=== PATIENT | male | born 1975 | race African-American/Black ===

== ENCOUNTER 2017-06-19 17:45 | Observation (INO) | payer MEDICAID ==
[2017-06-19] MEDS ORDERED: Aspirin 81 MG Tab.Chew PO ONE (18:05)
[2017-06-19] MEDS ORDERED: Nitroglycerin 0.4 MG Tab.SL SL ONE ×2 (18:05→18:22)
[2017-06-19] MEDS ORDERED: Aspirin 81 MG Tab.Chew ONE (18:08)
--- NOTE | 2017-06-19 18:20 | EDM.PDOC ---
ED HPI GENERAL MEDICAL PROBLEM - General Chief Complaint: Chest Pain Stated Complaint: CHEST PAIN Time Seen by Provider: 06/19/17 18:05 Source of Information: Reports: Patient History Limitations: Reports: No Limitations - History of Present Illness INITIAL COMMENTS - FREE TEXT/NARRATIVE: 41 YO WM presents to ER presents to ER with a 1 day history of dizziness and chest pain. Pt reports he has been sick with a cold and productive cough x 2 weeks but today around 1pm developed episodic chest pain with associated shortness of breath, dizziness and nausea. Pt reports pain starts in the upper part of his right chest with radiation to left side of chest. Pt has history of hypertension and asthma whixh he has been using albuterol PRN for shortness of breath. Onset: Today Onset Date: 06/19/17 Onset Time: 13:00 Duration: Day(s): (1) Location: Reports: Chest Quality: Reports: Ache Severity: Mild Improves with: Reports: None Worsens with: Reports: Movement Associated Symptoms: Reports: Chest Pain, Cough, cough w sputum, Nausea/Vomiting , Shortness of Breath. 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 Treatments - Related Data Allergies Allergy/AdvReac Type Severity Reaction Status Date / Time No Known Drug Allergies Allergy Other Verified 06/19/17 18:09 Home Meds: Home Meds Albuterol Sulfate [Proventil Hfa] 2 puff IH Q4H PRN 06/19/17 [History] Hydrochlorothiazide 25 mg PO BEDTIME 06/19/17 [History] Omeprazole 20 mg PO BEDTIME 06/19/17 [History] amLODIPine [Norvasc] 10 mg PO BEDTIME 06/19/17 [History] ED ROS GENERAL - Review of Systems Review Of Systems: See Below Constitutional: Reports: No Symptoms HEENT: Reports: No Symptoms Respiratory: Reports: Shortness of Breath, Cough Cardiovascular: Reports: Chest Pain, Blood Pressure Problem, Lightheadedness Endocrine: Reports: No Symptoms GI/Abdominal: Reports: Nausea : Reports: No Symptoms Musculoskeletal: Reports: No Symptoms Skin: Reports: No Symptoms Neurological: Reports: No Symptoms Psychiatric: Reports: No Symptoms Hematologic/Lymphatic: Reports: No Symptoms Immunologic: Reports: No Symptoms ED EXAM, GENERAL - Physical Exam Exam: See Below Exam Limited By: No Limitations General Appearance: Alert, WD/WN, No Apparent Distress Head: Atraumatic, Normocephalic Neck: Normal Inspection, Supple, Non-Tender, Full Range of Motion Respiratory/Chest: No Respiratory Distress, Lungs Clear, Normal Breath Sounds, No Accessory Muscle Use, Chest Non-Tender Cardiovascular: Normal Peripheral Pulses, Regular Rate, Rhythm, No Edema, No Gallop, No JVD, No Murmur, No Rub GI/Abdominal: Normal Bowel Sounds, Soft, Non-Tender, No Organomegaly, No Distention, No Abnormal Bruit, No Mass Back Exam: Normal Inspection, Full Range of Motion, NT Extremities: Normal Inspection, Normal Range of Motion, Non-Tender, Normal Capillary Refill, No Pedal Edema Neurological: Alert, Oriented, CN II-XII Intact, Normal Cognition, Normal Gait, Normal Reflexes, No Motor/Sensory Deficits Psychiatric: Normal Affect, Normal Mood Skin Exam: Warm, Dry, Intact, Normal Color, No Rash Lymphatic: No Adenopathy EKG INTERPRETATION EKG Date: 06/19/17 Time: 17:59 Rhythm: NSR Rate (Beats/Min): 85 [place]: RAD-Right [place] Deviation P-Wave: Present QRS: Normal ST-T: Normal QT: Normal Comparison: NA - No Prior EKG Course - Vital Signs Last Recorded V/S: Last Vital Signs Temp 37.2 C 06/19/17 18:42 Pulse 84 06/19/17 18:42 Resp 18 06/19/17 18:42 BP 152/74 H 06/19/17 18:42 Pulse Ox 93 L 06/19/17 18:42 - Orders/Labs/Meds Orders: Active Orders 24 hr Category Date Time Status Cardiac Monitoring [RC] . DIRECTED Care 06/19/17 18:12 Active EKG Documentation Completion [RC] ASDIRECTED Care 06/19/17 18:12 Active Oxygen Therapy, ED [RC] ASDIRECTED Care 06/19/17 18:12 Active Chest 1V Frontal [CR] Stat Exams 06/19/17 18:06 Ordered EKG 12 Lead [EK] Routine Ther 06/19/17 18:12 Ordered Labs: Laboratory Tests 06/19/17 06/19/17 06/19/17 Range/Units 18:06 18:06 18:06 WBC 6.8 (5.0-10.0) 10^3/uL RBC 5.40 (4.50-6.00) 10^6/uL Hgb 14.9 (13.0-17.0) g/dL Hct 44.7 (40.0-52.0) % MCV 82.7 (82.0-92.0) fL MCH 27.6 (27.0-31.0) pg MCHC 33.3 (32.0-36.0) g/dL RDW 14.9 H (11.5-14.5) % Plt Count 229 (150-300) 10^3/uL MPV 8.2 (7.4-10.4) fL Neut % (Auto) 54.2 (50.0-70.0) % Lymph % (Auto) 33.4 (20.0-40.0) % Harlan % (Auto) 7.6 (2.0-8.0) % Eos % (Auto) 3.4 H (1.0-3.0) % Baso % (Auto) 1.4 H (0.0-1.0) % Neut # (Auto) 3.7 (2.5-7.0) 10^3/uL Lymph # (Auto) 2.3 (1.0-4.0) 10^3/uL Harlan # (Auto) 0.5 (0.1-0.8) 10^3/uL Eos # (Auto) 0.2 (0.1-0.3) 10^3/uL Baso # (Auto) 0.1 (0.0-0.1) 10^3/uL PT 11.0 (8.9-11.4) SEC INR 1.1 (0.9-1.1) APTT 26.4 (20.8-31.2) SEC Sodium 139 (136-145) mmol/L Potassium 3.1 L (3.3-5.3) mmol/L Chloride 101 (98-115) mmol/L Carbon Dioxide 26.4 (21.0-32.0) mmol/L BUN 11 (6-25) mg/dL Creatinine 1.17 (0.51-1.17) mg/dL Est Cr Clr Drug Dosing TNP Estimated GFR (MDRD) > 60 mL/min Glucose 120 H (70-110) mg/dL Calcium 8.5 L (8.7-10.3) mg/dL Creatine Kinase (26-276) U/L CK-MB (CK-2) (0.00-4.30) ng/mL Troponin I 0.09 H* (0.00-0.070) ng/mL 06/19/17 Range/Units 18:06 WBC (5.0-10.0) 10^3/uL RBC (4.50-6.00) 10^6/uL Hgb (13.0-17.0) g/dL Hct (40.0-52.0) % MCV (82.0-92.0) fL MCH (27.0-31.0) pg MCHC (32.0-36.0) g/dL RDW (11.5-14.5) % Plt Count (150-300) 10^3/uL MPV (7.4-10.4) fL Neut % (Auto) (50.0-70.0) % Lymph % (Auto) (20.0-40.0) % Harlan % (Auto) (2.0-8.0) % Eos % (Auto) (1.0-3.0) % Baso % (Auto) (0.0-1.0) % Neut # (Auto) (2.5-7.0) 10^3/uL Lymph # (Auto) (1.0-4.0) 10^3/uL Harlan # (Auto) (0.1-0.8) 10^3/uL Eos # (Auto) (0.1-0.3) 10^3/uL Baso # (Auto) (0.0-0.1) 10^3/uL PT (8.9-11.4) SEC INR (0.9-1.1) APTT (20.8-31.2) SEC Sodium (136-145) mmol/L Potassium (3.3-5.3) mmol/L Chloride (98-115) mmol/L Carbon Dioxide (21.0-32.0) mmol/L BUN (6-25) mg/dL Creatinine (0.51-1.17) mg/dL Est Cr Clr Drug Dosing Estimated GFR (MDRD) mL/min Glucose (70-110) mg/dL Calcium (8.7-10.3) mg/dL Creatine Kinase 740 H* (26-276) U/L CK-MB (CK-2) 0.90 (0.00-4.30) ng/mL Troponin I (0.00-0.070) ng/mL Meds: Medications Discontinued Medications Generic Name Dose Route Start Last Admin Trade Name Enedina PRN Reason Stop Dose Admin Aspirin 324 mg 06/19/17 18:05 06/19/17 18:10 Aspirin PO 06/19/17 18:06 324 mg ONETIME ONE Administration Aspirin Confirm 06/19/17 18:08 06/19/17 18:14 Aspirin Administered 06/19/17 18:09 Not Given Dose 324 mg .ROUTE .STK-MED ONE Nitroglycerin 0.4 mg 06/19/17 18:05 06/19/17 18:13 Nitrostat SL 06/19/17 18:06 0.4 mg ONETIME ONE Administration Nitroglycerin 1 gm 06/19/17 18:22 06/19/17 18:29 Nitro-Bid 2% TOP 06/19/17 18:23 1 gm ONETIME ONE Administration Nitroglycerin 0.4 mg 06/19/17 18:22 Nitrostat SL 06/19/17 18:23 ONETIME ONE - Radiology Interpretation Free Text/Narrative:: CXR- NAd Departure - Departure Time of Disposition: 19:28 Disposition: Refer to Observation Condition: Fair Clinical Impression: Upper respiratory infection Chest pain Qualifiers: Chest pain type: unspecified Qualified Code(s): R07.9 - Chest pain, unspecified Referrals: Deidre Morgan, CUST[employer]ER SERVICE [employer]OCIATE [Primary Care Provider] - Forms: ED Department Discharge - My Orders Last 24 Hours: My Active Orders 06/19/17 18:06 Chest 1V Frontal [CR] Stat 06/19/17 18:12 Cardiac Monitoring [RC] . DIRECTED EKG Documentation Completion [RC] ASDIRECTED Oxygen Therapy, ED [RC] ASDIRECTED EKG 12 Lead [EK] Routine - Assessment/Plan Last 24 Hours: My Active Orders 06/19/17 18:06 Chest 1V Frontal [CR] Stat 06/19/17 18:12 Cardiac Monitoring [RC] . DIRECTED EKG Documentation Completion [RC] ASDIRECTED Oxygen Therapy, ED [RC] ASDIRECTED EKG 12 Lead [EK] Routine Assessment:: 1. acute chest pain 2. Upper respiratory infection Plan: 1. discussed case with Dr Elkins- [facility] in [facility] who recommended serial trop I and if any change to transfer for further evaluation and treatment 2. nitro/ASA 3. supportive care 4. NS @125cc/hr
[2017-06-19] MEDS ORDERED: Nitroglycerin 2% Oint 1 GM UD Packet TOP ONE (18:22)
[2017-06-19 18:47] LABS: CHLORIDE,CL 101 mmol/L (98-115); SODIUM,NA 139 mmol/L (136-145)
[2017-06-19] MEDS ORDERED: Sodium Chloride 0.9% 5 ML Syringe FLUSH PRN (19:40)
[2017-06-19] MEDS ORDERED: methylPREDNISolone Sodium Succinate 125 MG/2 ML SDV IVPUSH ONE (20:17)
[2017-06-19] MEDS ORDERED: Potassium Chloride 20 MEQ Tab.ER PO ONE (20:19)
[2017-06-19] MEDS ORDERED: Albuterol HFA 18 Gm Inhaler INH PRN (20:20)
[2017-06-19] MEDS ORDERED: Sodium Chloride 0.9% 250 ML IV SCH (20:30)
[2017-06-19] MEDS ORDERED: Sodium Chloride 0.9% 1,000 ML IV SCH (20:45)
[2017-06-19] MEDS: Albuterol/Ipratropium 3.0-0.5 MG/3 ML Neb Soln NEB SCH ×2 (20:49→22:19)
[2017-06-19] MEDS ORDERED: Omeprazole 20 MG Cap.CR PO SCH (21:00)
[2017-06-19] MEDS ORDERED: amLODIPine 5 MG Tab PO SCH (21:00)
[2017-06-19] MEDS ORDERED: Hydrochlorothiazide 25 MG Tab PO SCH (21:00)
--- NOTE | 2017-06-19 21:13 | HP ---
CHIEF COMPLAINT: Shortness of breath and chest pain. HISTORY OF PRESENT ILLNESS: This is a 41-year-old black male, patient who has a history of asthma. He takes an albuterol inhaler at home as needed. He has had asthma since he was a kid. Over the last two weeks, he has been having chest cold with a cough. He has been having nasal congestion. He has just been coughing. He woke up this morning, just did not feel well. He went to work and worked an 8-hour shift. He says he felt really short of breath. He went home to lay down, and when he tried and woke up from sleeping, he had some pain in his chest. He felt really short of breath, so his took him to the emergency room for further evaluation and treatment. The patient states that he felt dizzy and lightheaded with shortness of breath. He denied any nausea or sweatiness. Says he just could not get his air in, as states that he has been coughing like crazy lately. PAST MEDICAL HISTORY: Asthma and hypertension. PAST SURGICAL HISTORY: He denies any surgeries. MEDICATIONS: He is on amlodipine 10 mg daily, hydrochlorothiazide 25 mg daily along with omeprazole 20 mg daily. ALLERGIES: No known drug allergies. SOCIAL/PERSONAL HISTORY: This gentleman is , lives in [place], [place]. 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 He drinks alcohol socially. FAMILY HISTORY: Positive for cardiac history in his mother and father. REVIEW OF SYSTEMS: CONSTITUTIONAL: No weight loss. No fever. No chills. No night sweats. Appetite is good. No fatigue. EYES: No recent visual changes. ENT: No sinus congestion or hoarseness. CARDIOVASCULAR: The patient did have chest pain earlier that has resolved. He denies any heart palpitations. RESPIRATORY: He complained of shortness of breath, cough, wheezing. GI: No vomiting, diarrhea or melena. : No dysuria or hematuria. MUSCULOSKELETAL: No new bone pain or joint swelling. INTEGUMENTARY: No rash or pruritus. NEUROLOGIC/PSYCHIATRIC: No recent headache or focal weakness. No depressive symptoms. ENDOCRINE: No heat or cold intolerances or polydipsia. HEMATOLOGIC/LYMPHATIC: No excessive bruising or lymph node swelling. ALLERGIC/IMMUNOLOGIC: No hives or recurrent infections. PHYSICAL EXAMINATION: GENERAL: This is a black male, in no acute distress. VITAL SIGNS: Blood pressure is 113/60, respiratory rate is 18, oxygen saturation on 2 L nasal cannula is 95%, the patient's temperature is 99.0, pulse is 86. HEENT: Head is normocephalic. EOMs are intact. Pupils are equal, reactive to light and accommodation. Bilateral tympanic membranes are intact. Nose is clear. No pharyngeal erythema noted. NECK: Supple. No JVD. Trachea midline. LUNGS: Lungs sounds are diminished at bilateral bases. There are scattered wheezes throughout lung flores. CARDIAC: Regular rate and rhythm. No murmurs identified. ABDOMEN: Soft, nontender, nondistended. Bowel sounds present x4. EXTREMITIES: No joint effusion noted. Full range of motion. NEUROLOGICAL: He is grossly intact. DIAGNOSTIC: The patient's EKG that was obtained in the emergency room shows normal sinus rhythm at 85 beats per minute. The patient's chest x-ray that was obtained in the emergency room was clear per Radiology. The patient's lab work that was obtained in the ER, CBC shows white count within normal range at 6.8, PT is 11.0, INR is 1.1, PTT is 26.4. Chemistry panel shows potassium low at 3.1, glucose 120, calcium 8.5, creatine kinase elevated at 740, CK-MB is within normal range at 0.90. Troponin is slightly elevated at 0.09. IMPRESSION/PLAN: 1. Chest pain with shortness of breath with history of asthma. Plan, the patient's chest x-ray was clear per Radiology in the ER. The patient's troponin was slightly elevated at 0.09. CK was elevated at 740. The patient's CK-MB was normal range. We will repeat a troponin at midnight. We will also repeat another troponin at 6 a.m. in the morning. We will place the patient on telemetry at this time. We are going to give the patient one-time dose of Solu-Medrol IV 125 mg. We are going to place the patient on DuoNebs every 6 hours. 2. Hypokalemia. Plan, the patient's potassium level is low at 3.1. We are going to give potassium chloride, K-Dur 20 mEq p.o. now. We will recheck a basic metabolic panel in the morning. 3. History of hypertension. Plan, we will continue with amlodipine 10 mg daily this evening along with hydrochlorothiazide 25 mg daily. 4. History of gastroesophageal reflux disease. Plan, continue with omeprazole 20 mg daily. 5. Elevated CK at 740. Plan, we are going to run some IV fluids of normal saline at 50 mL/h and recheck a CK and a CK-MB in the morning. /[id number]/MODL
[2017-06-19] MEDS ORDERED: Lidocaine 2% 100 MG/5 ML Syringe IVPUSH PRN (23:25)
[2017-06-19] MEDS ORDERED: Atropine 0.1 MG/ML 10 ML Syringe IVPUSH PRN (23:25)
[2017-06-19] MEDS ORDERED: EPINEPHrine 1:10,000 1 MG/10 ML Syringe IVPUSH PRN (23:25)
[2017-06-19] MEDS ORDERED: Nitroglycerin 0.4 MG Tab.SL SL PRN (23:25)
[2017-06-20] MEDS: Acetaminophen 325 MG Tab PO PRN ×2 (01:10→07:52)
[2017-06-20] MEDS: Albuterol/Ipratropium 3.0-0.5 MG/3 ML Neb Soln NEB SCH ×2 (05:50→10:25)
[2017-06-20 06:49] VITALS: BP 128/70
[2017-06-20 07:50] LABS: CHLORIDE,CL 99 mmol/L (98-115); SODIUM,NA 134 mmol/L (136-145)
--- NOTE | 2017-06-22 08:37 | DISCH ---
ADMITTING DIAGNOSIS: Chest pain, rule out myocardial infarction with exacerbation of asthma with shortness of breath. FINAL DIAGNOSIS: Slightly elevated troponin that resolved, exacerbation of asthma with wheezing. BRIEF HISTORY AND ESSENTIAL PHYSICAL FINDINGS: This is a 41-year-old black male who has a history of asthma. He usually takes an albuterol inhaler as needed. He has had asthma since he was a kid. Over the last two weeks, he has been having a chest cold with a cough. He has been having some nasal congestion. He has been coughing quite a bit lately. He states that he woke up yesterday morning and was not feeling well. He went to work and worked an 8-hour shift. He says he really did not feel well after work and he felt short of breath, so he went home and laid down. When he laid down, he woke up and he was having some chest pain, some shortness of breath, and at that time, his brought him into the emergency room for further evaluation and treatment. The patient stated that he felt dizzy and lightheaded. He denies any nausea or sweatiness during the chest pain. He states he just could not get his air in. The patient's states he has been coughing a lot lately. SIGNIFICANT LABS XRAYS AND CONSULTATION FINDINGS: The patient had EKG performed in the emergency room, which shows normal sinus rhythm at 85 beats per minute. The patient also had a chest x-ray performed in the emergency room, which was clear per Radiology. The patient's lab work was obtained in the emergency room. CBC showed a white count within normal range at 6.8. CBC was unremarkable. The patient had a PT, which was 11.0, INR 1.1, PTT was 26.4. The patient's chemistry panel showed potassium to be low at 3.1, glucose 120, otherwise unremarkable. The patient's creatine kinase was elevated at 740. His CK-MB was in normal range at 0.90. The patient's troponin was elevated in the emergency room at 0.09. Repeat troponin that was done at midnight had come down to 0.07. Repeat troponin that was drawn this morning had come down to 0.05. The patient's CK-MB this morning had also come down to 0.50. The patient's creatine kinase had also come down this morning to 584. Repeat chemistry panel showed sodium slightly low at 134, potassium 3.4, otherwise unremarkable. COURSE IN HOSPITAL WITH COMPLICATIONS IF ANY: The patient was admitted with repeat troponins that showed troponins decreasing along with CK-MB. The patient was given Solu-Medrol IV along with some DuoNeb nebulizers, which improved his breathing. The patient was on telemetry. No episodes of any arrhythmias. The patient was in sinus rhythm throughout hospital stay. The patient states that his breathing was improved. CONDITION TREATMENT AND FINAL DISPOSITION ON DISCHARGE AND PROGNOSIS: Condition is stable. Final disposition will be home. IMPRESSION AND PLAN: 1. Episode of chest pain with shortness of breath with history of asthma. Plan: The patient's chest x-ray was clear per Radiology. EKG showed normal sinus rhythm at 85 beats per minute. The patient's troponin was slightly elevated on admission at 0.09 and it come down to 0.05 this morning. The patient's CK-MB had also come down to 0.50. The patient was given a one time dose of Solu-Medrol IV 125 mg, which improved his breathing. He is also given some DuoNeb treatments that helped his breathing. The patient was on telemetry, remained in normal sinus rhythm throughout the hospital stay. I am going to discharge the patient home. He can follow up in the clinic with Dr. Mame Man. The patient does have extensive family history of heart disease. The patient states that his mother and father both have had heart disease. 2. Hypokalemia, resolved. Plan: The patient's potassium when he came in was low at 3.1. He was given a one time dose of K-Dur 20 mEq p.o. Recheck of potassium this morning was within normal range at 3.4. 3. History of hypertension. Plan: The patient's blood pressure has been controlled while in the hospital. Continue with amlodipine 10 mg daily along with HCTZ 25 mg daily. 4. History of gastroesophageal reflux disease. Plan: Continue with omeprazole 20 mg daily. 5. Elevated CK. Plan: The patient's creatine kinase was elevated on admission at 740. He was given IV fluids and normal saline ran at 50 mL an hour through the night. Repeat CK this morning prior to discharge was down to 584. 6. Elevated glucose. Plan: The patient's glucose this morning was elevated at 227, most likely it could be from Solu-Medrol. The patient will need follow up in the clinic. Overall plan: I am going to have the patient followup in the clinic with Dr. Mame Man for fasting lab work of a lipid panel along with a hemoglobin A1c, to check and see if the patient has diabetes. Also for heart screen, possibly set the patient up for Lexiscan with the patient's family history of heart disease and episode of chest with slight elevation in troponin. /[id number]/MODL MTDD
== END 2017-06-20 11:18 | disposition home or self-care (01) ==
LOC: KA.ED 17:45 → KA.MS 19:29
PROVIDERS: ADMIT Physician Assistant Medical; ATTEND Physician Assistant
DX: R79.89 Other specified abnormal findings of blood chemistry (principal); J45.901 Unspecified asthma with (acute) exacerbation; E87.6 Hypokalemia; I10 Essential (primary) hypertension; K21.9 Gastro-esophageal reflux disease without esophagitis; R74.8 Abnormal levels of other serum enzymes; Z79.899 Other long term (current) drug therapy
CPT/HCPCS: 36415; 71010; 80048; 82550; 82553; 84484; 85025; 85610; 85730; 94640; A9270; J2930; J7030; 93005; 96361; 96374; 99285; G0378

== ENCOUNTER 2017-11-29 16:49 | Emergency (ER) | payer BC, MEDICAID ==
[2017-11-29] MEDS ORDERED: Acetaminophen/HYDROcodone 325-10 MG Tab PO ONE (17:51)
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
[2017-11-29 18:06] VITALS: BP 143/81
[2017-11-29] MEDS ORDERED: Acetaminophen/HYDROcodone 325-5 MG Tab PO PRN (18:41)
== END 2017-11-29 18:53 | disposition home or self-care (01) ==
LOC: KA.ED 16:49
DX: S82.442A Displaced spiral fracture of shaft of left fibula, initial encounter for closed fracture (principal); S93.02XA Subluxation of left ankle joint, initial encounter; I10 Essential (primary) hypertension; F17.210 Nicotine dependence, cigarettes, uncomplicated; J45.909 Unspecified asthma, uncomplicated; E66.9 Obesity, unspecified; Z68.35 Body mass index [BMI] 35.0-35.9, adult; Z79.899 Other long term (current) drug therapy; W00.0XXA Fall on same level due to ice and snow, initial encounter
CPT/HCPCS: 73590; 73610; 99283; A9270

== ENCOUNTER 2018-12-28 07:20 | Emergency (ER) | payer BC, MEDICAID ==
[2018-12-28 07:39] VITALS: BP 153/93
[2018-12-28] MEDS ORDERED: Iopamidol 755 Mg/ML 75 ML Bottle IVPUSH ONE (08:32)
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
[2018-12-28] MEDS ORDERED: Sodium Chloride 0.9% 50 ML IV ONE (08:33)
[2018-12-28 08:35] LABS: ANION GAP 5.7 mmol/L (5-15); CHLORIDE,CL 104 mmol/L (98-115); SODIUM,NA 135 mmol/L (136-145)
--- NOTE | 2018-12-28 09:26 | CT ---
[id number] CT/CT Abdomen Pelvis W IV EXAM: ABDOMEN AND PELVIS CT WITH CONTRAST INDICATION: Epigastric pain. COMPARISON: None. DISCUSSION: Small fat-containing umbilical hernia. Mild scarring or subsegmental atelectasis in lung bases. Scattered colonic diverticula without evidence of diverticulitis. The liver, gallbladder, spleen, pancreas, adrenal glands, kidneys, small bowel and appendix are normal in appearance. No adenopathy, free air free fluid. 24 mm circumscribed sclerotic bone lesion in the right femoral neck possibly representing a bone island, but nonspecific. The osseous structures are otherwise unremarkable. IMPRESSION: 1. No acute findings. Elie Sesay MD 12/28/18 0925 Thank you for allowing us to participate in the care of your patient.
[2018-12-28] MEDS ORDERED: GI Cocktail 45 ML BOTTLE PO ONE (09:38)
== END 2018-12-28 10:05 | disposition home or self-care (01) ==
LOC: KA.ED 07:20
DX: K29.70 Gastritis, unspecified, without bleeding (principal); I10 Essential (primary) hypertension; J45.909 Unspecified asthma, uncomplicated; F17.210 Nicotine dependence, cigarettes, uncomplicated; Z79.899 Other long term (current) drug therapy
CPT/HCPCS: 36415; 74177; 80053; 81001; 83690; 85025; 86140; 86318; 99284-25; A9270-GY; J7050; Q9967

== ENCOUNTER 2019-03-08 05:54 | Emergency (ER) | payer BC, MEDICAID ==
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
[2019-03-08] MEDS: Cyclobenzaprine 10 MG Tab PO ONE (06:33)
[2019-03-08] MEDS: Ketorolac 60 MG/2 ML SDV IM ONE (06:33)
[2019-03-08] MEDS: HYDROmorphone 1 MG/ML Syringe IM ONE (06:33)
[2019-03-08 07:07] VITALS: BP 143/76
== END 2019-03-08 07:10 | disposition home or self-care (01) ==
LOC: KA.ED 05:54
DX: M62.838 Other muscle spasm (principal); I10 Essential (primary) hypertension; J45.909 Unspecified asthma, uncomplicated; Z79.899 Other long term (current) drug therapy
CPT/HCPCS: 96372; 99283; A9270-GY; J1170; J1885

== ENCOUNTER 2019-07-25 10:08 | Emergency (ER) | payer BC, MEDICAID ==
[2019-07-25 10:29] VITALS: BP 145/77; PULSE 71
[2019-07-25] MEDS ORDERED: Ondansetron 4 MG/2 ML SDV IVPUSH ONE (10:29)
[2019-07-25] MEDS ORDERED: Sodium Chloride 0.9% 1,000 ML IV ONE ×2 (10:29→12:01)
[2019-07-25] MEDS ORDERED: Sodium Chloride 0.9% 10 ML Syringe FLUSH PRN (10:29)
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
[2019-07-25 11:28] LABS: ANION GAP 16.2 mmol/L (5-15); CHLORIDE,CL 105 mmol/L (98-115); SODIUM,NA 143 mmol/L (136-145)
[2019-07-25] MEDS ORDERED: Sodium Chloride 0.9% 1,000 ML ONE (11:58)
--- NOTE | 2019-07-25 12:18 | CT ---
[id number] CT/CT Abdomen Pelvis W IV EXAM: CT Abdomen Pelvis W IV CLINICAL DATA: EPIGASTRIC PAIN. COMPARISON STUDY: January 07, 2019. FINDINGS: Lung bases are clear. Liver, spleen, gallbladder, pancreas, adrenal glands, and kidneys are unremarkable. Colonic diverticulosis. No evidence of acute diverticulitis. No small bowel obstruction or inflammation. Appendix is normal. No lymphadenopathy, free fluid, or pneumoperitoneum. Urinary bladder is unremarkable. Scattered changes of mild spondylosis throughout the spine. No fracture or osseous lesion. Stable benign-appearing sclerotic structure in the right femoral neck unchanged from December 2018. Bone island is most likely. IMPRESSION: No acute findings. Other findings are described above. Shine Mcneal MD 07/25/19 [id number] Thank you for allowing us to participate in the care of your patient.
[2019-07-25] MEDS ORDERED: GI Cocktail 45 ML BOTTLE PO ONE (12:32)
== END 2019-07-25 14:05 | disposition home or self-care (01) ==
LOC: KA.ED 10:08
DX: K29.70 Gastritis, unspecified, without bleeding (principal); I10 Essential (primary) hypertension; J45.909 Unspecified asthma, uncomplicated; E66.9 Obesity, unspecified; Z68.35 Body mass index [BMI] 35.0-35.9, adult; Z87.891 Personal history of nicotine dependence; Z79.899 Other long term (current) drug therapy
CPT/HCPCS: 36415; 74177; 80053; 82272; 83690; 84443; 85025; 87338; 96361; 96374; 99284-25; A9270-GY; J2405; J7030

== ENCOUNTER 2019-10-17 07:59 | Day surgery (SDC) | payer BC, MEDICAID ==
[2019-10-17] MEDS ORDERED: Propofol 200 MG/20 ML SDV IV ONE (08:00)
[2019-10-17] MEDS ORDERED: Lactated Ringers 1,000 ML IV SCH (08:00)
[2019-10-17] MEDS ORDERED: Sodium Chloride 0.9% 10 ML Syringe FLUSH PRN (08:00)
[2019-10-17] MEDS ORDERED: Lidocaine 2% 5 ML SDV IV ONE (08:00)
[2019-10-17] MEDS ORDERED: Midazolam 1 MG/ML 2 ML SDV IV ONE (08:00)
[2019-10-17] MEDS ORDERED: Albuterol 8 GM Inhaler INH ONE ×2 (08:00→09:39)
[2019-10-17] MEDS ORDERED: Lidocaine 2% 5 ML SDV ONE (09:21)
[2019-10-17] MEDS ORDERED: Midazolam 1 MG/ML 2 ML SDV ONE (09:21)
[2019-10-17] MEDS ORDERED: Propofol 200 MG/20 ML SDV ONE (09:21)
--- NOTE | 2019-10-17 09:50 | PCM.OPNOTE ---
- General Post-Op/Procedure Note Date of Surgery/Procedure: 10/17/19 Operative Procedure(s): Upper Gi Endoscopy and biopsies Findings: Small hiatal hernia woth changes of reflux. Pre Op Diagnosis: Persistent symptoms of upper abdominal pain and discomfort. Previous history of reflux esophagitis. Patient is currently taking PPIs without much benefit. Post-Op Diagnosis: Changes of mild reflux esophagitis at the gastroesophageal junction. Mild antral gastritis. 2 small gastric polyps noted along the greater curvature. Biopsies were taken to rule out Helicobacter pylori infection. Patient has had a past Helicobacter pylori infection. [place] [facility] [place]geon: Suresh Man Condition: Good Free Text/Narrative:: INFORMED CONSENT: Patient is here today for elective upper GI endoscopy. All aspects of this procedure have been discussed with the patient. All possible complications also, including possibility of perforation, infection, pain, bleeding, numbness of the throat, swallowing difficulty and unknown complications. In the event of perforation the patient may need surgical exploration to repair the defect. The patient understands fully well. Patient did not have any further questions for me at the end of my interview. The patient wishes for me to proceed. INSTRUMENT USED: Video gastroscope [place]: [place] [place] ASA CLASSIFICATION: [2] PROCEDURE PERFORMED: [Upper gastrointestinal endoscopy and biopsies.] PHARYNX: Normal. ESOPHAGUS: Normal. Proximal: Normal. Middle: Normal. Lower: Normal. GE Junction: Changes of mild reflux esophagitis. Z line is at 38 cm. STOMACH: Normal. Cardia: Normal. Fundus: Normal. Lesser Curvature: Normal. Greater Curvature: 2 small polyps noted along the greater curvature.. Antrum: Normal. Pylorus: Normal. DUODENUM: Normal. First Part: Normal. Second Part: Normal. Third Part: Normal. RETROFLEXION: Normal. BIOPSY: Biopsy was taken to rule out Helicobacter pylori infection. TOLERANCE: Excellent. COMPLICATIONS: None.
[2019-10-17 13:25] VITALS: BP 152/91; PULSE 83
== END 2019-10-17 11:05 | disposition home or self-care (01) ==
LOC: KA.SDS 07:59
PROVIDERS: ATTEND Family Medicine
DX: K21.0 Gastro-esophageal reflux disease with esophagitis (principal); K44.9 Diaphragmatic hernia without obstruction or gangrene; K29.50 Unspecified chronic gastritis without bleeding; K31.7 Polyp of stomach and duodenum; I10 Essential (primary) hypertension; J45.20 Mild intermittent asthma, uncomplicated; E78.2 Mixed hyperlipidemia; J00 Acute nasopharyngitis [common cold]; H10.33 Unspecified acute conjunctivitis, bilateral; F17.200 Nicotine dependence, unspecified, uncomplicated; E66.9 Obesity, unspecified; Z68.38 Body mass index [BMI] 38.0-38.9, adult; Z79.51 Long term (current) use of inhaled steroids; Z79.899 Other long term (current) drug therapy
CPT/HCPCS: A9270-GY; J2001; J2250; J2704; J7120

== ENCOUNTER 2020-05-14 07:25 | Emergency (ER) | payer BC, MEDICAID ==
[2020-05-14] MEDS ORDERED: Ondansetron 4 MG/2 ML SDV IVPUSH ONE (07:45)
[2020-05-14] MEDS ORDERED: Sodium Chloride 0.9% 10 ML Syringe FLUSH PRN (07:46)
[2020-05-14] MEDS ORDERED: Alum Hydrox/Mag Hydrox/Simeth 30 ML, Lidocaine 2% 15 ML PO ONE ×2 (08:00)
[2020-05-14] MEDS ORDERED: Sucralfate 1 GM Tab PO ONE (08:03)
[2020-05-14 08:25] LABS: ANION GAP 14.1 mmol/L (5-15); CHLORIDE,CL 104 mmol/L (98-115); SODIUM,NA 143 mmol/L (136-145)
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
--- NOTE | 2020-05-14 09:04 | CR ---
[id number] RAD/RAD Chest PA And Lateral EXAM: FRONTAL AND LATERAL CHEST INDICATION: Chest pain. COMPARISON: June 19, 2017. DISCUSSION: Lungs are mildly hyperinflated, but clear. The heart is normal in size. IMPRESSION: 1. No acute findings. Elie Sesay MD 05/14/20 0902 Thank you for allowing us to participate in the care of your patient.
[2020-05-14] MEDS ORDERED: Aspirin 81 MG Tab.Chew PO ONE (09:37)
[2020-05-14] MEDS ORDERED: Enoxaparin 100 MG/1 ML Syringe SUBCUT ONE (09:41)
[2020-05-14] MEDS ORDERED: Nitroglycerin 0.4 MG Tab.SL SL PRN (09:44)
[2020-05-14] MEDS ORDERED: Aspirin 81 MG Tab.Chew ONE (09:44)
[2020-05-14] MEDS ORDERED: Sodium Chloride 0.9% 1,000 ML ONE (09:45)
[2020-05-14] MEDS ORDERED: Enoxaparin 150 MG/1 ML Syringe SUBCUT ONE (10:04)
[2020-05-14] MEDS ORDERED: Sodium Chloride 0.9% 1,000 ML IV SCH (10:15)
[2020-05-14] MEDS ORDERED: Metoprolol Tartrate 5 MG/5 ML SDV IVPUSH ONE (11:01)
[2020-05-14 12:38] VITALS: BP 132/86; PULSE 69
== END 2020-05-14 13:00 ==
LOC: KA.ED 07:25
DX: R10.13 Epigastric pain (principal); R79.89 Other specified abnormal findings of blood chemistry; K02.9 Dental caries, unspecified; R11.2 Nausea with vomiting, unspecified; I10 Essential (primary) hypertension; J45.909 Unspecified asthma, uncomplicated; F17.210 Nicotine dependence, cigarettes, uncomplicated; E66.9 Obesity, unspecified; Z68.39 Body mass index [BMI] 39.0-39.9, adult; Z79.899 Other long term (current) drug therapy
CPT/HCPCS: 36415; 71046; 80053; 82272; 83605; 83690; 84484; 85025; 86140; 87338; 93005; 96361; 96372; 96374; 96375; 99284; 99285-25; A9270-GY; J1650; J2405; J3490; J7030

== ENCOUNTER 2020-09-07 06:37 | Emergency (ER) | payer BC, MEDICAID ==
[2020-09-07 07:13] VITALS: BP 145/99; PULSE 83
[2020-09-07] MEDS ORDERED: Ketorolac 30 MG/ML SDV IVPUSH ONE (07:15)
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
[2020-09-07] MEDS: Sodium Chloride 0.9% 10 ML Syringe FLUSH PRN ×3 (07:29→07:48)
[2020-09-07 07:51] LABS: CHLORIDE,CL 102 mmol/L (98-115); SODIUM,NA 138 mmol/L (136-145)
--- NOTE | 2020-09-07 07:56 | CR ---
[id number] RAD/RAD Chest PA And Lateral EXAM: RAD Chest PA And Lateral CLINICAL DATA: CHEST PAIN COMPARISON: CORRELATION IS MADE WITH MAY 14, 2020 FINDINGS: There is discoid atelectasis at the right lung base The cardiac silhouette is stable The lungs otherwise are clear IMPRESSION: DISCOID ATELECTASIS RIGHT LUNG BASE Raza Fernandez MD 09/07/20 0753 Thank you for allowing us to participate in the care of your patient.
== END 2020-09-07 08:20 | disposition home or self-care (01) ==
LOC: KA.ED 06:37
DX: S29.012A Strain of muscle and tendon of back wall of thorax, initial encounter (principal); E78.00 Pure hypercholesterolemia, unspecified; I10 Essential (primary) hypertension; J45.909 Unspecified asthma, uncomplicated; E66.9 Obesity, unspecified; Z68.37 Body mass index [BMI] 37.0-37.9, adult; X58.XXXA Exposure to other specified factors, initial encounter
CPT/HCPCS: 36415; 71046; 80053; 82553; 84484; 85025; 93005; 96374; 96375; 99284; 99285-25; J1885; J3360

== ENCOUNTER 2020-12-31 07:43 | Emergency (ER) | payer BC, MEDICAID ==
[2020-12-31] MEDS ORDERED: Albuterol 0.083% 2.5 MG/3 ML Neb Soln NEB ONE ×2 (07:44→08:16)
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
[2020-12-31] MEDS ORDERED: Sodium Chloride 0.9% 10 ML Syringe FLUSH PRN (07:55)
[2020-12-31] MEDS ORDERED: methylPREDNISolone Sodium Succinate 125 MG/2 ML SDV IVPUSH ONE (07:59)
[2020-12-31] MEDS ORDERED: Sodium Chloride 0.9% 1,000 ML IV ONE (07:59)
[2020-12-31] MEDS ORDERED: Albuterol 0.083% 2.5 MG/3 ML Neb Soln ONE (08:11)
--- NOTE | 2020-12-31 08:18 | CR ---
[id number] RAD/RAD Chest PA or AP 1V EXAM: FRONTAL CHEST INDICATION: SHORTNESS OF BREATH. COMPARISON: September 07, 2020. DISCUSSION: The heart is at upper limits normal for size with borderline central vascular congestion. Mild bibasilar atelectasis and/or infiltrates, right greater than left. Mild chronic right base scarring. IMPRESSION: 1. Borderline heart size with possible early interstitial edema. 2. Mild bibasilar atelectasis and/or infiltrates. Elie Sesay MD 12/31/20 0817 Thank you for allowing us to participate in the care of your patient.
[2020-12-31 08:40] LABS: ANION GAP 16.8 mmol/L (5-15); CHLORIDE,CL 105 mmol/L (98-107); SODIUM,NA 143 mmol/L (136-145)
[2020-12-31 09:01] VITALS: BP 142/93; PULSE 81
== END 2020-12-31 09:28 | disposition home or self-care (01) ==
LOC: KA.ED 07:43
DX: J45.901 Unspecified asthma with (acute) exacerbation (principal); R74.8 Abnormal levels of other serum enzymes; E78.00 Pure hypercholesterolemia, unspecified; I10 Essential (primary) hypertension; J45.909 Unspecified asthma, uncomplicated; E66.9 Obesity, unspecified; Z68.36 Body mass index [BMI] 36.0-36.9, adult; Z91.19 Patient's noncompliance with other medical treatment and regimen; Z79.899 Other long term (current) drug therapy; Z72.0 Tobacco use
CPT/HCPCS: 36415; 71045; 80053; 82550; 82553; 84484; 85025; 93005; 94640; 96374; 99284; 99285-25; J2930; J7030; J7613-GY

== ENCOUNTER 2021-06-11 08:26 | Emergency (ER) | payer BC, MEDICAID ==
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
[2021-06-11] MEDS ORDERED: Sodium Chloride 0.9% 10 ML Syringe FLUSH PRN (08:44)
[2021-06-11 09:00] VITALS: BP 146/97; PULSE 96
[2021-06-11 09:32] LABS: CHLORIDE,CL 100 mmol/L (98-107); SODIUM,NA 139 mmol/L (136-145)
--- NOTE | 2021-06-11 10:00 | CR ---
[id number] RAD/RAD Chest PA or AP 1V EXAM: FRONTAL CHEST INDICATION: COVID. COMPARISON: December 31, 2020. DISCUSSION: Mild bibasilar airspace opacities are similar to the May 02, 2021 examination. Interval improvement in subsegmental atelectasis in the right lung base. Borderline heart size without evidence of edema. IMPRESSION: 1. Mild bibasilar airspace opacities are stable relative to December 31, 2020. Elie Sesay MD 06/11/21 0959 Thank you for allowing us to participate in the care of your patient.
[2021-06-11 10:09] LABS: CORONAVIRUS COVID-19 NAA NEGATIVE (NEGATIVE)
== END 2021-06-11 11:00 | disposition home or self-care (01) ==
LOC: KA.ED 08:26
DX: R05 Cough (principal); R19.8 Other specified symptoms and signs involving the digestive system and abdomen; E78.00 Pure hypercholesterolemia, unspecified; I10 Essential (primary) hypertension; J45.909 Unspecified asthma, uncomplicated; E66.9 Obesity, unspecified; Z68.36 Body mass index [BMI] 36.0-36.9, adult; Z20.822 Contact with and (suspected) exposure to COVID-19; Z79.899 Other long term (current) drug therapy
CPT/HCPCS: 0240U; 36415; 71045; 80053; 84484; 85025; 85379; 93005; 99284; 99284-25

== ENCOUNTER 2021-07-01 17:27 | Observation (INO) | payer BC, MEDICAID ==
[2021-07-01] MEDS ORDERED: EPINEPHrine 1:10,000 1 MG/10 ML Syringe IVPUSH PRN (18:03)
[2021-07-01] MEDS ORDERED: Lidocaine 2% 100 MG/5 ML Syringe IVPUSH PRN (18:03)
[2021-07-01] MEDS ORDERED: Atropine 0.1 MG/ML 10 ML Syringe IVPUSH PRN (18:03)
[2021-07-01] MEDS ORDERED: Nitroglycerin 0.4 MG Tab.SL SL PRN (18:03)
[2021-07-01 18:40] LABS: ANION GAP 13.7 mmol/L (5-15); CHLORIDE,CL 99 mmol/L (98-107); SODIUM,NA 134 mmol/L (136-145)
[2021-07-01] MEDS ORDERED: Albuterol 8 GM Inhaler INH PRN (18:42)
[2021-07-01] MEDS: Acetaminophen 325 MG Tab PO PRN (19:41)
[2021-07-01] MEDS: Enoxaparin 150 MG/1 ML Syringe SUBCUT SCH (19:41)
[2021-07-01] MEDS: Sodium Chloride 0.9% 1,000 ML IV SCH (19:42)
[2021-07-01] MEDS: guaiFENesin 600 MG Tab.ER PO PRN (19:47)
[2021-07-01] MEDS: Mometasone Furoate Powder 220 MCG/Puff 14 Dose Inhaler INH SCH (22:14)
[2021-07-02] MEDS: Acetaminophen 325 MG Tab PO PRN (03:29)
[2021-07-02] MEDS: Enoxaparin 150 MG/1 ML Syringe SUBCUT SCH ×2 (05:21→06:16)
[2021-07-02] MEDS: Sodium Chloride 0.9% 1,000 ML IV SCH (05:25)
[2021-07-02 06:29] VITALS: BP 125/86
[2021-07-02 07:54] LABS: ANION GAP 12.9 mmol/L (5-15); CHLORIDE,CL 101 mmol/L (98-107); SODIUM,NA 135 mmol/L (136-145)
[2021-07-02] MEDS ORDERED: Iopamidol 755 Mg/ML 100 ML Bottle IV ONE (08:12)
[2021-07-02] MEDS ORDERED: Sodium Chloride 0.9% 100 ML IV SCH (08:15)
[2021-07-02] MEDS ORDERED: Pantoprazole 40 MG Tab.CR PO SCH (09:00)
[2021-07-02] MEDS ORDERED: Montelukast 10 MG Tab PO SCH (09:00)
--- NOTE | 2021-07-02 09:43 | CT ---
[id number] CT/CTA Chest EXAM: CTA Chest CLINICAL DATA: ELEVATED D DIMER,SHORT OF BREATH,TACHYCARDIA. COMPARISON STUDY: June 11, 2021. FINDINGS: Lungs: Scattered patchy areas of nonmass-like and geographic appearing groundglass parenchymal opacification throughout both lungs. Appearance is consistent with pneumonia, including sequela of COVID 19. No pleural effusion or pneumothorax. Mediastinum: No mediastinal or hilar lymphadenopathy. Heart and great vessels: Heart is normal in size. No pericardial effusion. Thoracic aorta is normal in caliber. Within limitations of patient motion artifact in the lung bases, no evidence of pulmonary embolus in either pulmonary artery distribution. Bones: No acute fracture or compression deformity. Spondylosis. Upper abdomen: Unremarkable. IMPRESSION: Abnormal appearance of the lungs consistent with pneumonia, including possible sequela of COVID 19. Negative for pulmonary embolus. Other findings are described above. Shine Mcneal MD 07/02/21 0978 Thank you for allowing us to participate in the care of your patient.
[2021-07-02] MEDS ORDERED: Albuterol/Ipratropium 3.0-0.5 MG/3 ML Neb Soln NEB PRN (09:50)
[2021-07-02] MEDS: guaiFENesin 600 MG Tab.ER PO PRN (09:57)
[2021-07-02] MEDS: Mometasone Furoate Powder 220 MCG/Puff 14 Dose Inhaler INH SCH (09:58)
[2021-07-02 10:01] VITALS: PULSE 84
--- NOTE | 2021-07-02 10:52 | PCM.DCSUM1 ---
Discharge Summary - Hospital Course Free Text/Narrative:: Date of admission: 07/01/21 Date of discharge: 07/02/21 Admission diagnoses: # COVID-19 pneumonia # Dyspnea # Cough # Hypotension # Dehydration Discharge diagnoses: # COVID-19 pneumonia # Dyspnea, improved # Cough, improved # Hypotension, resolved # Dehydration, resolved Consultations: None Procedures: 07/02/21 CTA with evidence of COVID pneumonia, but NO PE or other concerns. Hospital course: Patient was admitted from [facility] for concerns of dyspnea in the setting of previously diagnosed COVID-19 infection. BP persistently low in the clinic and evidence of dehydration. Admission labs revealed overall normal CBC, evidence of dehydration with SRINIVASAN, and mildly elevated D-dimer. CTA revealed evidence of COVID pneumonia, but NO PE or other concerns. He received IVF, guaifenesin, and DuoNebs with excellent improvement in status. He felt ready for discharge to home. Discharge and follow-up recommendations: - Discharge to home - Medication changes at discharge: - Guaifenesin 600mg BID prn for cough/congestion - Instructed to take 1/2 doses of three outpatient antihypertensives until follow-up - Follow-up with PCP Isamar Morgan APRN-MILVIA, in 2 days - Discharge Data Discharge Date: 07/02/21 Discharge Disposition: Home, Self-Care 01 Condition: Good - Referral to Home Health Primary Care Physician: Isamar Morgan NP - Patient Instructions Diet: Usual Diet as Tolerated Activity: As Tolerated (encourage water intake to prevent dehydration) - Discharge Plan *PRESCRIPTION DRUG MONITORING PROGRAM REVIEWED*: Not Applicable *COPY OF PRESCRIPTION DRUG MONITORING REPORT IN PATIENT JOSE: Not Applicable Prescriptions/Med Rec: guaiFENesin [Mucinex] 600 mg PO BID #60 tab Home Medications: Home Meds Albuterol Sulfate [Proventil Hfa] 2 puff IH Q4H PRN 06/19/17 [History] Hydrochlorothiazide 25 mg PO DAILY 06/19/17 [History] amLODIPine [Norvasc] 10 mg PO DAILY 06/19/17 [History] Albuterol/Ipratropium [DuoNeb 3.0-0.5 MG/3 ML] 3 ml NEB Q4H PRN 11/29/17 [History] Losartan [Cozaar] 50 mg PO DAILY 11/29/17 [History] Pantoprazole Sodium [Protonix] 40 mg PO DAILY 10/14/19 [History] Sildenafil [Viagra] 100 mg PO ASDIRECTED PRN 10/14/19 [History] Acetaminophen [Tylenol] 650 mg PO Q4H PRN 07/01/21 [History] Fluticasone Propionate [Flovent HFA] 2 puff INH BID 07/01/21 [History] Montelukast [Singulair] 10 mg PO DAILY 07/01/21 [History] guaiFENesin [Mucinex] 600 mg PO BID #60 tab 07/02/21 [Rx] Patient Handouts: COVID-19 Frequently Asked Questions, COVID-19 Vaccine Information Referrals: Isamar Morgan, CIVILIAN JAIL OFFICER [Primary Care Provider] - 07/04/21 (Call to schedule appt) - Discharge Summary/Plan Comment DC Time >30 min.: Yes Total # of Minutes for Discharge Time: 35 - General Info Subjective Update: Mr. Davey reports feeling much better today. Shortness of breath improved, but mildly persistent. Tolerating oral intake well. Voiding/stooling without difficulty. No new concerns. Desires going home. - Patient Data Vitals - Most Recent: Last Vital Signs Temp 37.0 C 07/02/21 06:28 Pulse 84 07/02/21 09:58 Resp 20 07/02/21 06:28 BP 125/86 07/02/21 06:28 Pulse Ox 95 07/02/21 09:58 Weight - Most Recent: 124.738 kg I&O - Last 24 hours: Intake & Output 07/01/21 07/02/21 07/02/21 22:59 06:59 14:59 Intake Total 634 881 Balance 634 881 Lab Results - Last 24 hrs: Laboratory Results - last 24 hr 07/01/21 07/01/21 07/01/21 Range/Units 17:55 17:55 17:55 WBC 5.56 (5.00-10.00) 10^3/uL RBC 5.19 (4.50-6.00) 10^6/uL Hgb 14.1 (13.0-17.0) g/dL Hct 41.7 (40.0-52.0) % MCV 80.3 L D (82.0-92.0) fL MCH 27.2 (27.0-31.0) pg MCHC 33.8 (32.0-36.0) g/dL RDW 14.5 (11.5-14.5) % Plt Count 234 (150-400) 10^3/uL MPV 10.7 H (7.4-10.4) fL Immature Gran % (Auto) 0.4 (0.0-5.0) % Neut % (Auto) 68.3 (50.0-70.0) % Lymph % (Auto) 23.4 (20.0-40.0) % [place] % (Auto) 7.2 (2.0-8.0) % Eos % (Auto) 0.0 L (1.0-3.0) % Baso % (Auto) 0.7 (0.0-1.0) % Neut # (Auto) 3.80 (2.50-7.00) 10^3/uL Lymph # (Auto) 1.30 (1.00-4.00) 10^3/uL [place] # (Auto) 0.40 (0.10-0.80) 10^3/uL Eos # (Auto) 0.00 L (0.10-0.30) 10^3/uL Baso # (Auto) 0.04 (0.00-0.10) 10^3/uL Immature Gran # (Auto) 0.02 (0.00-0.50) 10^3/uL Platelet Estimate Adequate D-Dimer, Quantitative 490 H (<400) ng/mL Sodium 134 L (136-145) mmol/L Potassium 4.5 (3.5-5.1) mmol/L Chloride 99 (98-107) mmol/L Carbon Dioxide 25.8 (21.0-32.0) mmol/L Anion Gap 13.7 (5-15) mmol/L BUN 15 (7-18) mg/dL Creatinine 1.46 H (0.51-1.17) mg/dL Est Cr Clr Drug Dosing 65.28 mL/min Estimated GFR (MDRD) > 60 mL/min Glucose 83 (70-140) mg/dL Lactic Acid (0.4-2.0) mmol/L Calcium 8.6 L (8.7-10.3) mg/dL Total Bilirubin 0.5 (0.2-1.0) mg/dL AST 37 (15-37) U/L ALT 42 (14-63) U/L Alkaline Phosphatase 80 (46-116) U/L C-Reactive Protein 6.7 H (0.0-0.9) mg/dL Total Protein 8.2 (6.4-8.2) g/dL Albumin 3.36 L (3.40-5.00) g/dL 07/01/21 07/02/21 Range/Units 17:55 07:25 WBC (5.00-10.00) 10^3/uL RBC (4.50-6.00) 10^6/uL Hgb (13.0-17.0) g/dL Hct (40.0-52.0) % MCV (82.0-92.0) fL MCH (27.0-31.0) pg MCHC (32.0-36.0) g/dL RDW (11.5-14.5) % Plt Count (150-400) 10^3/uL MPV (7.4-10.4) fL Immature Gran % (Auto) (0.0-5.0) % Neut % (Auto) (50.0-70.0) % Lymph % (Auto) (20.0-40.0) % [place] % (Auto) (2.0-8.0) % Eos % (Auto) (1.0-3.0) % Baso % (Auto) (0.0-1.0) % Neut # (Auto) (2.50-7.00) 10^3/uL Lymph # (Auto) (1.00-4.00) 10^3/uL [place] # (Auto) (0.10-0.80) 10^3/uL Eos # (Auto) (0.10-0.30) 10^3/uL Baso # (Auto) (0.00-0.10) 10^3/uL Immature Gran # (Auto) (0.00-0.50) 10^3/uL Platelet Estimate D-Dimer, Quantitative (<400) ng/mL Sodium 135 L (136-145) mmol/L Potassium 3.7 (3.5-5.1) mmol/L Chloride 101 (98-107) mmol/L Carbon Dioxide 24.8 (21.0-32.0) mmol/L Anion Gap 12.9 (5-15) mmol/L BUN 10 (7-18) mg/dL Creatinine 0.94 (0.51-1.17) mg/dL Est Cr Clr Drug Dosing 101.39 mL/min Estimated GFR (MDRD) > 60 mL/min Glucose 83 (70-140) mg/dL Lactic Acid 1.4 (0.4-2.0) mmol/L Calcium 8.0 L (8.7-10.3) mg/dL Total Bilirubin (0.2-1.0) mg/dL AST (15-37) U/L ALT (14-63) U/L Alkaline Phosphatase (46-116) U/L C-Reactive Protein (0.0-0.9) mg/dL Total Protein (6.4-8.2) g/dL Albumin (3.40-5.00) g/dL Med Orders - Current: Current Medications Acetaminophen (Acetaminophen 325 Mg Tab) 650 mg PO Q6H PRN PRN Reason: Pain Last Admin: 07/02/21 03:29 Dose: 650 mg Documented by: Albuterol (Albuterol 8 Gm Inhaler) 0 gm INH Q4H PRN PRN Reason: Shortness of Breath Albuterol/Ipratropium (Albuterol/Ipratropium 3.0-0.5 Mg/3 Ml Neb Soln) 3 ml NEB Q4H PRN PRN Reason: Shortness of Breath Last Admin: 07/02/21 09:58 Dose: 3 ml Documented by: Atropine Sulfate (Atropine 0.1 Mg/Ml 10 Ml Syringe) 0 mg IVPUSH ASDIRECTED PRN PRN Reason: Heart. Enoxaparin Sodium (Enoxaparin 150 Mg/1 Ml Syringe) 125 mg SUBCUT Q12H STEFFANIE Last Admin: 07/02/21 06:16 Dose: Not Given Documented by: Epinephrine HCl (Epinephrine 1:10,000 1 Mg/10 Ml Syringe) 1 mg IVPUSH ASDIRECTED PRN PRN Reason: Heart. Guaifenesin (Guaifenesin 600 Mg Tab.Er) 600 mg PO BID PRN PRN Reason: Cough Last Admin: 07/02/21 09:57 Dose: 600 mg Documented by: Sodium Chloride (Normal Saline) 1,000 mls @ 125 mls/hr IV ASDIRECTED STEFFANIE Last Admin: 07/02/21 05:25 Dose: 125 mls/hr Documented by: Sodium Chloride (Normal Saline) 100 mls @ 200 mls/hr IV ASDIRECTED [facility] Last Admin: 07/02/21 09:00 Dose: 200 mls/hr Documented by: Lidocaine HCl (Lidocaine 2% 100 Mg/5 Ml Syringe) 0 mg IVPUSH ASDIRECTED PRN PRN Reason: Heart. Mometasone Furoate (Mometasone Furoate Powder 220 Mcg/Puff 14 Dose Inhaler) 0 puff INH DAILY [facility] Last Admin: 07/02/21 09:58 Dose: Not Given Documented by: Montelukast Sodium (Montelukast 10 Mg Tab) 10 mg PO DAILY [facility] Last Admin: 07/02/21 09:44 Dose: 10 mg Documented by: Nitroglycerin (Nitroglycerin 0.4 Mg Tab.Sl) 0.4 mg SL ASDIRECTED PRN PRN Reason: Heart. Pantoprazole Sodium (Pantoprazole 40 Mg Tab.Cr) 40 mg PO DAILY [facility] Last Admin: 07/02/21 09:44 Dose: 40 mg Documented by: Discontinued Medications Iopamidol (Iopamidol 755 Mg/Ml 100 Ml Bottle) 100 ml IV ONETIME ONE Stop: 07/02/21 08:13 Last Admin: 07/02/21 09:00 Dose: 100 ml Documented by: - Exam Physical Findings Comments:: GENERAL: Well-appearing adult lying in hospital bed in no acute distress. HEENT: Normocephalic, atraumatic. Conjunctiva clear. Nares patent without discharge. Mucous membranes moist. NECK: Supple, no masses. CV: Regular rate and rhythm, no murmurs, rubs, or gallops. 2+ radial pulses. PULMONARY: Normal effort, clear to auscultation bilaterally, no wheezes, rales, or rhonchi. ABDOMEN: Positive bowel sounds, soft, nontender, nondistended. EXTREMITIES: No edema, cyanosis, or clubbing. MUSCULOSKELETAL: Moves all extremities well. NEUROLOGICAL: No obvious deficits. DERMATOLOGIC: No rashes or suspicious lesions in exposed areas. PSYCHIATRIC: Alert, interactive, appropriate affect.
== END 2021-07-02 11:00 | disposition home or self-care (01) ==
LOC: KA.MS 17:27
PROVIDERS: ADMIT Nurse Practitioner Family; ATTEND Family Medicine
DX: U07.1 COVID-19 (principal); J12.82 Pneumonia due to coronavirus disease 2019; K21.9 Gastro-esophageal reflux disease without esophagitis; E78.5 Hyperlipidemia, unspecified; N52.9 Male erectile dysfunction, unspecified; J45.30 Mild persistent asthma, uncomplicated; I10 Essential (primary) hypertension; E78.2 Mixed hyperlipidemia; F17.210 Nicotine dependence, cigarettes, uncomplicated; E66.9 Obesity, unspecified; Z79.899 Other long term (current) drug therapy; E86.0 Dehydration
CPT/HCPCS: 36415; 71275; 80048; 80053; 83605; 85025; 85379; 86140; 94640; 96372; A9270-GY; G0378; G0379; J1650; J7030; J7620-GY; Q9967

== ENCOUNTER 2023-05-25 07:43 | Emergency (ER) | payer BC, MEDICAID ==
[2023-05-25 07:55] VITALS: PULSE 86
[2023-05-25] MEDS ORDERED: Albuterol/Ipratropium 3.0-0.5 MG/3 ML Neb Soln NEB ONE (07:59)
[2023-05-25 08:15] LABS: BASOPHILS ABSOLUTE AUTO 0.04 10^3/uL (0.00-0.10); BASOPHILS PERCENT AUTO 0.4 % (0.0-1.0); EOSINOPHILS ABSOLUTE AUTO 0.05 10^3/uL (0.10-0.30); EOSINOPHILS PERCENT AUTO 0.5 % (1.0-3.0); HEMATOCRIT 44.1 % (40.0-52.0); HEMOGLOBIN 13.9 g/dL (13.0-17.0); IMMATURE GRAN ABSOLUTE AUTO 0.01 10^3/uL (0.00-0.50); IMMATURE GRAN PERCENT AUTO 0.1 % (0.0-5.0); LYMPHOCYTES PERCENT AUTO 19.5 % (20.0-40.0); MEAN CORPUSCULAR HEMOGLOBIN 26.9 pg (27.0-31.0); MEAN CORPUSCULAR HGB CONC 31.5 g/dL (32.0-36.0); MEAN CORPUSCULAR VOLUME 85.5 fL (82.0-92.0); MONOCYTES ABSOLUTE AUTO 0.76 10^3/uL (0.10-0.80); MONOCYTES PERCENT AUTO 7.8 % (2.0-8.0); NEUTROPHILS ABSOLUTE AUTO 6.96 10^3/uL (2.50-7.00); NEUTROPHILS PERCENT AUTO 71.7 % (50.0-70.0); PLATELET COUNT,PLT 242 10^3/uL (150-400); RED BLOOD CELL COUNT 5.16 10^6/uL (4.50-6.00); RED CELL DISTRIBUTION WIDTH 14.5 % (11.5-14.5); WHITE BLOOD CELL COUNT,WBC 9.72 10^3/uL (5.00-10.00)
[2023-05-25 08:30] LABS: ALBUMIN 3.75 g/dL (3.40-5.00); ANION GAP 14.2 mmol/L (5-15); BILIRUBIN TOTAL 0.2 mg/dL (0.2-1.0); CALCIUM 8.8 mg/dL (8.7-10.3); CARBON DIOXIDE,CO2 26.5 mmol/L (21.0-32.0); CREATININE 0.84 mg/dL (0.51-1.17); EST CRCL DRUG DOSING (CG) 111.04 mL/min; POTASSIUM,K 3.7 mmol/L (3.5-5.1); PROTEIN TOTAL,TP 7.9 g/dL (6.4-8.2)
[2023-05-25] MEDS ORDERED: cefTRIAXone 2 GM Vial IVPUSH ONE (08:33)
[2023-05-25] MEDS ORDERED: Ondansetron 4 MG/2 ML SDV IVPUSH ONE (08:40)
[2023-05-25] MEDS ORDERED: cloNIDine 0.1 MG Tab PO ONE (08:52)
[2023-05-25 09:54] VITALS: BP 164/101
== END 2023-05-25 09:20 | disposition home or self-care (01) ==
LOC: KA.ED 07:43
DX: J18.9 Pneumonia, unspecified organism (principal); R11.2 Nausea with vomiting, unspecified; J45.909 Unspecified asthma, uncomplicated; I10 Essential (primary) hypertension; K21.9 Gastro-esophageal reflux disease without esophagitis; E66.9 Obesity, unspecified; F17.210 Nicotine dependence, cigarettes, uncomplicated; Z68.39 Body mass index [BMI] 39.0-39.9, adult; Z86.16 Personal history of COVID-19; Z79.899 Other long term (current) drug therapy
CPT/HCPCS: 36415; 71046; 80053; 83605; 85025; 96374; 96375; 99284; 99285-25; A9270-GY; J0696; J2405; J7620-GY

== ENCOUNTER 2024-04-11 12:05 | Emergency (ER) | payer BC ==
[2024-04-11] MEDS ORDERED: Sodium Chloride 0.9% 10 ML Syringe FLUSH PRN (12:11)
[2024-04-11 12:19] LABS: BASOPHILS ABSOLUTE AUTO 0.04 10^3/uL (0.00-0.10); BASOPHILS PERCENT AUTO 0.6 % (0.0-1.0); EOSINOPHILS ABSOLUTE AUTO 0.21 10^3/uL (0.10-0.30); EOSINOPHILS PERCENT AUTO 3.1 % (1.0-3.0); HEMATOCRIT 45.6 % (40.0-52.0); HEMOGLOBIN 14.6 g/dL (13.0-17.0); IMMATURE GRAN ABSOLUTE AUTO 0.01 10^3/uL (0.00-0.50); IMMATURE GRAN PERCENT AUTO 0.1 % (0.0-5.0); LYMPHOCYTES ABSOLUTE AUTO 2.27 10^3/uL (1.00-4.00); MEAN CORPUSCULAR HEMOGLOBIN 26.8 pg (27.0-31.0); MEAN CORPUSCULAR VOLUME 83.7 fL (82.0-92.0); MEAN PLATELET VOLUME 9.4 fL (7.4-10.4); MONOCYTES ABSOLUTE AUTO 0.49 10^3/uL (0.10-0.80); MONOCYTES PERCENT AUTO 7.1 % (2.0-8.0); NEUTROPHILS ABSOLUTE AUTO 3.86 10^3/uL (2.50-7.00); NEUTROPHILS PERCENT AUTO 56.1 % (50.0-70.0); PLATELET COUNT,PLT 242 10^3/uL (150-400); RED BLOOD CELL COUNT 5.45 10^6/uL (4.50-6.00); RED CELL DISTRIBUTION WIDTH 15.1 % (11.5-14.5); WHITE BLOOD CELL COUNT,WBC 6.88 10^3/uL (5.00-10.00)
[2024-04-11] MEDS: Aspirin 81 MG Tab.Chew PO ONE (12:34)
[2024-04-11 12:37] LABS: ALBUMIN 4.01 g/dL (3.40-5.00); ANION GAP 13.9 mmol/L (5-15); BILIRUBIN TOTAL 0.6 mg/dL (0.2-1.0); CALCIUM 9.1 mg/dL (8.7-10.3); CARBON DIOXIDE,CO2 28.5 mmol/L (21.0-32.0); CREATININE 1.04 mg/dL (0.51-1.17); EST CRCL DRUG DOSING (CG) 88.72 mL/min; POTASSIUM,K 3.4 mmol/L (3.5-5.1); PROTEIN TOTAL,TP 8.1 g/dL (6.4-8.2)
[2024-04-11] MEDS: Sodium Chloride 0.9% 1,000 ML IV ONE (12:39)
[2024-04-11] MEDS: LORazepam 2 MG/ML SDV IVPUSH ONE (12:39)
[2024-04-11 13:41] VITALS: BP 152/90; PULSE 91
== END 2024-04-11 14:05 | disposition home or self-care (01) ==
LOC: KA.ED 12:05
DX: R07.89 Other chest pain (principal); F41.9 Anxiety disorder, unspecified; I10 Essential (primary) hypertension; J45.909 Unspecified asthma, uncomplicated; K21.9 Gastro-esophageal reflux disease without esophagitis; E78.00 Pure hypercholesterolemia, unspecified; E66.9 Obesity, unspecified; Z79.899 Other long term (current) drug therapy; Z86.16 Personal history of COVID-19; Z68.39 Body mass index [BMI] 39.0-39.9, adult
CPT/HCPCS: 36415; 71045; 80053; 83880; 84484; 85025; 85379; 96374; 99285-25; A9270-GY; J2060; J7030

== ENCOUNTER 2024-08-08 16:40 | Emergency (ER) | payer BC ==
[2024-08-08] MEDS: Ketorolac 30 MG/ML SDV IVPUSH ONE (17:28)
[2024-08-08 17:30] LABS: BASOPHILS ABSOLUTE AUTO 0.07 10^3/uL (0.00-0.10); BASOPHILS PERCENT AUTO 0.9 % (0.0-1.0); EOSINOPHILS ABSOLUTE AUTO 0.21 10^3/uL (0.10-0.30); EOSINOPHILS PERCENT AUTO 2.8 % (1.0-3.0); HEMATOCRIT 43.1 % (40.0-52.0); IMMATURE GRAN ABSOLUTE AUTO 0.01 10^3/uL (0.00-0.50); IMMATURE GRAN PERCENT AUTO 0.1 % (0.0-5.0); LYMPHOCYTES PERCENT AUTO 35.8 % (20.0-40.0); MEAN CORPUSCULAR HEMOGLOBIN 27.6 pg (27.0-31.0); MEAN CORPUSCULAR HGB CONC 32.5 g/dL (32.0-36.0); MEAN PLATELET VOLUME 10.4 fL (7.4-10.4); MONOCYTES ABSOLUTE AUTO 0.53 10^3/uL (0.10-0.80); NEUTROPHILS ABSOLUTE AUTO 4.02 10^3/uL (2.50-7.00); NEUTROPHILS PERCENT AUTO 53.4 % (50.0-70.0); PLATELET COUNT,PLT 239 10^3/uL (150-400); RED BLOOD CELL COUNT 5.07 10^6/uL (4.50-6.00); RED CELL DISTRIBUTION WIDTH 15.2 % (11.5-14.5); WHITE BLOOD CELL COUNT,WBC 7.54 10^3/uL (5.00-10.00)
[2024-08-08 17:32] LABS: APPEARANCE,URINE CLEAR (CLEAR); BILIRUBIN,URINE NEGATIVE (NEGATIVE); COLOR,URINE YELLOW (YELLOW); GLUCOSE,URINE NEGATIVE (NEGATIVE); KETONES,URINE NEGATIVE (NEGATIVE); LEUKOCYTE ESTERASE,URINE NEGATIVE (NEGATIVE); NITRITE,URINE NEGATIVE (NEGATIVE); OCCULT BLOOD,URINE NEGATIVE (NEGATIVE); PH,URINE 7.5 (5.0-9.0); PROTEIN,URINE TRACE mg/dL (NEGATIVE); UROBILINOGEN,URINE 0.2 E.U./dL (0.2-1.0)
[2024-08-08] MEDS: Sodium Chloride 0.9% 1,000 ML IV ONE (17:35)
[2024-08-08 17:38] LABS: BACTERIA,URINE RARE /HPF (NONE TO FEW); EPITHELIAL CELLS,URINE FEW /LPF; MUCUS,URINE RARE /LPF (NEGATIVE); RBC,URINE 0-5 /HPF (0-5); WBC,URINE 0-5 /HPF (0-5)
[2024-08-08 17:45] LABS: ALBUMIN 4.13 g/dL (3.40-5.00); ANION GAP 12.6 mmol/L (5-15); BILIRUBIN TOTAL 0.7 mg/dL (0.2-1.0); CALCIUM 8.5 mg/dL (8.7-10.3); CARBON DIOXIDE,CO2 28.8 mmol/L (21.0-32.0); CREATININE 0.9 mg/dL (0.51-1.17); EST CRCL DRUG DOSING (CG) 102.52 mL/min; POTASSIUM,K 3.4 mmol/L (3.5-5.1)
[2024-08-08 17:47] VITALS: BP 152/107; PULSE 84
[2024-08-08] MEDS: Ketorolac 10 MG Tab PO ONE (18:44)
== END 2024-08-08 18:40 | disposition home or self-care (01) ==
LOC: KA.ED 16:40
DX: M54.50 Low back pain, unspecified (principal); M62.830 Muscle spasm of back; M54.2 Cervicalgia; R51.9 Headache, unspecified; H11.32 Conjunctival hemorrhage, left eye; I10 Essential (primary) hypertension; J45.909 Unspecified asthma, uncomplicated; K21.9 Gastro-esophageal reflux disease without esophagitis; E66.9 Obesity, unspecified; Z68.38 Body mass index [BMI] 38.0-38.9, adult; Z86.16 Personal history of COVID-19; Z79.51 Long term (current) use of inhaled steroids; Z79.899 Other long term (current) drug therapy; W10.8XXA Fall (on) (from) other stairs and steps, initial encounter
CPT/HCPCS: 70450; 72125; 72131; 80053; 81001; 85025; 96365; 96375; 99284; 99284-25; A9270-GY; J1885; J2800; J3490; J7030

== ENCOUNTER 2025-05-03 15:41 | Emergency (ER) | payer BC ==
[2025-05-03 15:55] VITALS: PULSE 77
[2025-05-03] MEDS: Ketorolac 30 MG/ML SDV IVPUSH ONE (15:55)
[2025-05-03] MEDS: Sodium Chloride 0.9% 10 ML Syringe FLUSH PRN (15:57)
[2025-05-03] MEDS: methylPREDNISolone Sodium Succinate 125 MG/2 ML SDV IVPUSH ONE (16:53)
[2025-05-03 17:40] VITALS: BP 148/100
[2025-05-03] MEDS: Acetaminophen/HYDROcodone 325-5 MG Tab PO ONE (17:43)
== END 2025-05-03 17:52 | disposition home or self-care (01) ==
LOC: KA.ED 15:41
DX: M25.512 Pain in left shoulder (principal); M54.12 Radiculopathy, cervical region; M47.812 Spondylosis without myelopathy or radiculopathy, cervical region; R20.2 Paresthesia of skin; Z79.899 Other long term (current) drug therapy; K21.9 Gastro-esophageal reflux disease without esophagitis; Z86.16 Personal history of COVID-19
CPT/HCPCS: 72125; 96365; 96375; 99283-25; A9270-GY; J1885; J2800; J2919

== ENCOUNTER 2025-05-18 08:27 | Emergency (ER) | payer BC ==
[2025-05-18 08:43] VITALS: PULSE 87
[2025-05-18] MEDS: Ketorolac 30 MG/ML SDV IM ONE (09:24)
[2025-05-18 10:52] VITALS: BP 150/96
== END 2025-05-18 10:29 | disposition home or self-care (01) ==
LOC: KA.ED 08:27
DX: M25.512 Pain in left shoulder (principal); E78.00 Pure hypercholesterolemia, unspecified; I10 Essential (primary) hypertension; J45.909 Unspecified asthma, uncomplicated; K21.9 Gastro-esophageal reflux disease without esophagitis; F17.210 Nicotine dependence, cigarettes, uncomplicated; Z91.048 Other nonmedicinal substance allergy status; Z79.51 Long term (current) use of inhaled steroids; Z79.899 Other long term (current) drug therapy
CPT/HCPCS: 96372; 99283; A9270-GY; J1885